=== PATIENT | female | born 1950 | race Two or more races ===

== ENCOUNTER 2024-12-04 21:24 | Emergency (ER) | payer OTHER ==
[~2024-12-04] VITALS: Ht 152.4 cm; Wt 56.7 kg
[2024-12-04] MEDS ORDERED: LIPITOR40 M1 PO (21:36)
[2024-12-04] MEDS ORDERED: COZAAR100 MG PO (21:36)
[2024-12-05] MEDS ORDERED: 0.9 % SODIUM CHLORIDE 1,000 ML IV STA (00:17)
[2024-12-05] MEDS ORDERED: MORPHINE SULFATE 4 MG/ML VIAL IV STA (00:20)
[2024-12-05] MEDS ORDERED: HYOSCYAMINE SULFATE 0.125 MG TAB.SUBL ONE (00:22)
[2024-12-05] MEDS ORDERED: HYOSCYAMINE SULFATE 0.125 MG TAB.SUBL SL ONE (00:30)
[2024-12-05 01:02] LABS: BASO % 1.3 % (0.1-1.2); EOS # 0.12 (0.04-0.54); EOS % 1.5 % (0.7-7.0); HEMOGLOBIN 14.8 g/dL (11.2-15.7); LYMPH # 3.29 (1.18-3.74); LYMPH % 41.2 % (19.3-53.1); MEAN CORPUSCULAR HEMOGLOBIN 27.1 pg (25.6-32.2); MONO # 0.58 (0.24-0.82); MONO % 7.3 % (4.7-12.5); NEUT # 3.88 (1.56-6.13); NEUT % 48.6 % (34.0-71.1); PLATELET COUNT 300 K/uL (163-369); RED BLOOD COUNT 5.46 M/uL (3.93-5.22); RED CELL DISTRIBUTION WIDTH 14.6 % (11.6-14.4)
[2024-12-05 01:22] LABS: INR 1.03; PARTIAL THROMBOPLASTIN TIME 26.5 SECONDS (22.0-34.0); PROTHROMBIN TIME 11.2 SECONDS (9.0-11.5)
[2024-12-05 01:25] LABS: ALBUMIN 3.4 gm/dL (3.4-5.0); BILIRUBIN TOTAL 0.16 mg/dL (0.3-1.2); CALCIUM 9.5 mg/dL (8.5-10.1); CREATININE SERUM 0.61 mg/dL (0.55-1.02); GFR 95.61; GLOBULINA 4.2 G/DL (2.4-3.5); POTASSIUM 3.43 mEq/L (3.5-5.1); TOTAL PROTEIN 7.6 gm/dL (6.4-8.2)
[2024-12-05 02:00] LABS: PH,URINE 7.5 (5.0-8.0); URINE APPEARANCE Clear; URINE BILIRRUBIN Negative (NEGATIVE); URINE BLOOD Negative; URINE COLOR Yellow; URINE GLUCOSE Negative (NEGATIVE); URINE KETONE Negative (NEGATIVE); URINE LEUKOCYTE Negative; URINE NITRATE Negative; URINE PROTEIN Negative (NEGATIVE); URINE UROBILINOGEN 0.2 E.U./dl
[2024-12-05 02:06] LABS: TYPE CELLS SQUAMOUS; URINE BACTERIA 1.2 uL (0.0-1933); URINE EPITHELIAL CELLS 0.7 uL (0.0-38.8); URINE RBC 1.6 uL (0.0-20.8); URINE WBC 0.1 uL (0.0-23.2)
== END 2024-12-05 04:50 | disposition home or self-care (01) ==
LOC: ER 22:28
DX: R10.9 Unspecified abdominal pain (principal); Z88.0 Allergy status to penicillin; K57.30 Diverticulosis of large intestine without perforation or abscess without bleeding
CPT/HCPCS: 36415; 74176; 96365; 96366; 99284; J2270; J7030